=== PATIENT | male | born 1995 | race American Indian/Alaskan Native ===

== ENCOUNTER 2019-11-01 10:32 | Inpatient (IN) | payer SELFPAY ==
[2019-11-01] MEDS ORDERED: ACETAMINOPHEN 325 MG TAB PO ONE (10:41)
[2019-11-01] MEDS ORDERED: ACETAMINOPHEN 325 MG TAB ONE (10:44)
[2019-11-01] MEDS ORDERED: SODIUM CHLORIDE 0.9% 1000 ML 1,000 ML IV ONE ×2 (11:10→15:23)
--- NOTE | 2019-11-01 11:41 | XRay Report ---
CHEST 1 VIEW 11/01/2019 11:15 AM INDICATION / CLINICAL INFORMATION: cough. COMPARISON: None available. FINDINGS: SUPPORT DEVICES: None. HEART / MEDIASTINUM: No significant abnormality. LUNGS / PLEURA: No significant pulmonary or pleural abnormality. No pneumothorax. ADDITIONAL FINDINGS: No significant additional findings. IMPRESSION: 1. No acute abnormality of the chest. Signer Name: Mitchell Oh MD Signed: 11/01/2019 11:37 AM Workstation Name: [id number]
[2019-11-01 12:13] LABS: Basophils % (Auto) 0.2 % (0.0-1.8); Eosinophils % (Auto) 0.1 % (0.0-4.3); Hematocrit 40.4 % (35.5-45.6); Hemoglobin 13.8 gm/dl (11.8-15.2); Lymphocytes # (Auto) 0.9 K/mm3 (1.2-5.4); Lymphocytes % (Auto) 6.2 % (13.4-35.0); Mean Corpuscular HGB Conc 34 % (32-34); Mean Corpuscular Volume 91 fl (84-94); Monocytes # (Auto) 0.6 K/mm3 (0.0-0.8); Monocytes % (Auto) 4.5 % (0.0-7.3); Platelet Count 442 K/mm3 (140-440); Red Blood Count 4.42 M/mm3 (3.65-5.03); Red Cell Distribution Width 12.2 % (13.2-15.2)
--- NOTE | 2019-11-01 12:20 | Emergency Department Report ---
ED Chest Pain HPI - General Chief Complaint: Abdominal Pain Stated Complaint: SOB,BACK PAIN Time Seen by Provider: 11/01/19 11:05 Source: patient Mode of arrival: Ambulatory Limitations: No Limitations - History of Present Illness Initial Comments: This is a 24-year-old man who states that he went to see his primary care provider about 2 weeks ago for a routine exam and blood work. He was called later to inform him that he had elevated liver function test. He states that over the past few days he has developed a fever and chills at night. He has had a nonproductive cough. He states that he has some substernal chest discomfort when he takes a deep breath. He has had no leg pain, no recent travel, no exposure to TB or patients known to have COVID. He does not take any routine medications. He states that he was admitted once for pneumonia as a child. MD Complaint: chest pain -: Gradual, days(s) Onset: during rest Pain Location: substernal Pain Radiation: none Severity: moderate Severity scale (0 -10): 0 Quality: aching Consistency: intermittent Improves With: nothing Worsens With: inspiration Context: recent illness re: denies: nausea, vomting, diaphoresis Other Symptoms: cough. denies: fever, syncope Aspirin use within the Past 7 Days: (0) No - Related Data Allergies Allergy/AdvReac Type Severity Reaction Status Date / Time No Known Allergies Allergy Unverified 11/01/19 10:35 Heart Score - HEART Score History: Slightly suspicious EKG: Normal Age: < 45 Risk factors: No known risk factors Troponin: < normal limit HEART Score: 0 - Critical Actions Critical Actions: 0-3 pts:0.9-1.7%risk of adverse cardiac event.Candidate for discharge ED Review of Systems ROS: Stated complaint: SOB,BACK PAIN Other details as noted in HPI Constitutional: denies: chills, fever Eyes: denies: eye pain, eye discharge, vision change ENT: denies: ear pain, throat pain Respiratory: cough. denies: shortness of breath, wheezing Cardiovascular: chest pain. denies: palpitations Endocrine: no symptoms reported Gastrointestinal: denies: abdominal pain, nausea, diarrhea Genitourinary: denies: urgency, dysuria Musculoskeletal: denies: back pain, joint swelling, arthralgia Skin: denies: rash, lesions Neurological: denies: headache, weakness, paresthesias Psychiatric: denies: anxiety, depression Hematological/Lymphatic: denies: easy bleeding, easy bruising ED Past Medical Hx - Past Medical History Previous Medical History?: Yes Hx Asthma: Yes Additional medical history: Childhood pneumonia - Surgical History Past Surgical History?: No - Social History Smoking Status: Never Smoker Substance Use Type: Alcohol ED Physical Exam - General Limitations: No Limitations General appearance: alert, in no apparent distress - Head Head exam: Present: atraumatic, normocephalic - Eye Eye exam: Present: normal appearance, PERRL, EOMI. Absent: scleral icterus - ENT ENT exam: Present: mucous membranes moist - Neck Neck exam: Present: normal inspection. Absent: tenderness, meningismus - Respiratory Respiratory exam: Present: normal lung sounds bilaterally. Absent: respiratory distress - Cardiovascular Cardiovascular Exam: Present: regular rate, normal rhythm. Absent: systolic mu rmur, diastolic murmur, rubs, gallop - GI/Abdominal GI/Abdominal exam: Present: soft, normal bowel sounds. Absent: distended, tenderness, guarding, rebound, rigid - Rectal Rectal exam: Present: deferred - Extremities Exam Extremities exam: Present: normal inspection - Back Exam Back exam: Present: normal inspection - Neurological Exam Neurological exam: Present: alert, oriented X3, CN II-XII intact. Absent: motor sensory deficit - Psychiatric Psychiatric exam: Present: normal affect, normal mood - Skin Skin exam: Present: warm, dry, intact, normal color. Absent: rash ED Course Vital Signs 11/01/19 11/01/19 11/01/19 10:38 11:19 11:30 Temperature 101.5 F H Pulse Rate 124 H 112 H 112 H Respiratory 22 12 21 Rate Blood Pressure 138/78 115/74 O2 Sat by Pulse 96 96 Oximetry 11/01/19 11/01/19 11/01/19 12:00 12:27 13:00 Temperature 100.0 F H Pulse Rate 100 H 103 H Respiratory 17 36 H Rate Blood Pressure 119/66 126/71 O2 Sat by Pulse 97 97 Oximetry 11/01/19 14:00 Temperature Pulse Rate 116 H Respiratory 29 H Rate Blood Pressure 130/74 O2 Sat by Pulse 98 Oximetry - Reevaluation(s) Reevaluation #1: Discussed with hospitalist. Patient admitted. I suspect the patient will be COVID positive. 11/01/19 15:21 CHATO score - Chato Score Age > 65: (0) No Aspirin use within the Past 7 Days: (0) No 3 or more CAD Risk Factors: (0) No 2 or more Angina events in past 24 hrs: (0) No Known CAD with more than 50% Stenosis: (0) No Elevated Cardiac Markers: (0) No ST Deviation Greater than 0.5mm: (0) No CHATO Score: 0 ED Medical Decision Making - Lab Data Result diagrams: 11/01/19 11:55 11/01/19 11:55 Laboratory Results - last 24 hr 11/01/19 11/01/19 11/01/19 11:55 11:55 11:55 WBC 14.3 H RBC 4.42 Hgb 13.8 Hct 40.4 MCV 91 MCH 31 MCHC 34 RDW 12.2 L Plt Count 442 H Lymph % (Auto) 6.2 L Ocean % (Auto) 4.5 Eos % (Auto) 0.1 Baso % (Auto) 0.2 Lymph # 0.9 L [place] # 0.6 Eos # 0.0 Baso # 0.0 Seg Neutrophils % 89.0 H Seg Neutrophils # 12.7 H PT 13.8 INR 1.05 APTT 31.1 D-Dimer 236.11 H Sodium Potassium Chloride Carbon Dioxide Anion Gap BUN Creatinine Estimated GFR BUN/Creatinine Ratio Glucose Calcium Magnesium Total Bilirubin Direct Bilirubin Indirect Bilirubin AST ALT Alkaline Phosphatase Lactate Dehydrogenase Total Creatine Kinase Troponin T C-Reactive Protein Total Protein Albumin Albumin/Globulin Ratio Lipase 11 L 11/01/19 11/01/19 11:55 11:55 WBC RBC Hgb Hct MCV MCH MCHC RDW Plt Count Lymph % (Auto) Ocean % (Auto) Eos % (Auto) Baso % (Auto) Lymph # Ocean # Eos # Baso # Seg Neutrophils % Seg Neutrophils # PT INR APTT D-Dimer Sodium 139 Potassium 3.6 Chloride 96.2 L Carbon Dioxide 25 Anion Gap 21 BUN 12 Creatinine 0.8 Estimated GFR > 60 BUN/Creatinine Ratio 15 Glucose 96 93 Calcium 9.9 Magnesium 2.50 H Total Bilirubin 0.70 Direct Bilirubin 0.2 Indirect Bilirubin 0.5 AST 28 ALT 57 H Alkaline Phosphatase 82 Lactate Dehydrogenase 294 H 286 H Total Creatine Kinase 82 Troponin T < 0.010 C-Reactive Protein 30.30 H 31.60 H Total Protein 8.8 H Albumin 4.6 Albumin/Globulin Ratio 1.1 Lipase Laboratory Results - last 24 hr 11/01/19 11/01/19 11/01/19 11:55 11:55 11:55 WBC 14.3 H RBC 4.42 Hgb 13.8 Hct 40.4 MCV 91 MCH 31 MCHC 34 RDW 12.2 L Plt Count 442 H Lymph % (Auto) 6.2 L [place] % (Auto) 4.5 Eos % (Auto) 0.1 Baso % (Auto) 0.2 Lymph # 0.9 L [place] # 0.6 Eos # 0.0 Baso # 0.0 Seg Neutrophils % 89.0 H Seg Neutrophils # 12.7 H PT 13.8 INR 1.05 APTT 31.1 D-Dimer 236.11 H Sodium Potassium Chloride Carbon Dioxide Anion Gap BUN Creatinine Estimated GFR BUN/Creatinine Ratio Glucose Lactic Acid Calcium Magnesium Ferritin Total Bilirubin Direct Bilirubin Indirect Bilirubin AST ALT Alkaline Phosphatase Lactate Dehydrogenase Total Creatine Kinase CK-MB (CK-2) CK-MB (CK-2) Rel Index Troponin T C-Reactive Protein Total Protein Albumin Albumin/Globulin Ratio Lipase 11 L Procalcitonin 11/01/19 11/01/19 11/01/19 11:55 11:55 11:55 WBC RBC Hgb Hct MCV MCH MCHC RDW Plt Count Lymph % (Auto) Ocean % (Auto) Eos % (Auto) Baso % (Auto) Lymph # Ocean # Eos # Baso # Seg Neutrophils % Seg Neutrophils # PT INR APTT D-Dimer Sodium 139 Potassium 3.6 Chloride 96.2 L Carbon Dioxide 25 Anion Gap 21 BUN 12 Creatinine 0.8 Estimated GFR > 60 BUN/Creatinine Ratio 15 Glucose 96 Lactic Acid Calcium 9.9 Magnesium 2.50 H Ferritin 615.2 H Total Bilirubin 0.70 Direct Bilirubin 0.2 Indirect Bilirubin 0.5 AST 28 ALT 57 H Alkaline Phosphatase 82 Lactate Dehydrogenase 294 H Total Creatine Kinase 82 CK-MB (CK-2) < 1.0 CK-MB (CK-2) Rel Index 1.2 Troponin T < 0.010 C-Reactive Protein 30.30 H Total Protein 8.8 H Albumin 4.6 Albumin/Globulin Ratio 1.1 Lipase Procalcitonin 0.11 11/01/19 11/01/19 11:55 11:55 WBC RBC Hgb Hct MCV MCH MCHC RDW Plt Count Lymph % (Auto) Ocean % (Auto) Eos % (Auto) Baso % (Auto) Lymph # Ocean # Eos # Baso # Seg Neutrophils % Seg Neutrophils # PT INR APTT D-Dimer Sodium Potassium Chloride Carbon Dioxide Anion Gap BUN Creatinine Estimated GFR BUN/Creatinine Ratio Glucose 93 Lactic Acid 1.30 Calcium Magnesium Ferritin Total Bilirubin Direct Bilirubin Indirect Bilirubin AST ALT Alkaline Phosphatase Lactate Dehydrogenase 286 H Total Creatine Kinase CK-MB (CK-2) CK-MB (CK-2) Rel Index Troponin T C-Reactive Protein 31.60 H Total Protein Albumin Albumin/Globulin Ratio Lipase Procalcitonin - EKG Data -: EKG Interpreted by Me EKG shows normal: sinus rhythm, axis, intervals, QRS complexes, ST-T waves Rate: normal - EKG Data Interpretation: no acute changes - Radiology Data Radiology results: report reviewed (I think the patient may have a right perihilar/right lower lobe infiltrate. It was not read as positive by the radiologist.), image reviewed (CT appears to show bilateral infiltrates. I think COVID is likely in this patient.) Critical care attestation.: If time is entered above; I have spent that time in minutes in the direct care of this critically ill patient, excluding procedure time. ED Disposition Clinical Impression: Person under investigation for COVID-19 Bilateral pneumonia Qualifiers: Pneumonia type: due to unspecified organism Lung location: unspecified part of lung Qualified Code(s): J18.9 - Pneumonia, unspecified organism Disposition: OP ADMIT IP TO THIS HOSP Is pt being admited?: Yes Does the pt Need Aspirin: No Condition: Stable Instructions: Bacterial Pneumonia (ED) Referrals: PRIMARY CARE, [Primary Care Provider] - 3-5 Days Time of Disposition: 15:22
[2019-11-01 12:27] LABS: INR 1.05 (0.87-1.13); Partial Thromboplastin Time 31.1 Sec. (24.2-36.6)
[2019-11-01 12:36] LABS: C-Reactive Protein 31.6 mg/dL (0.00-1.30)
[2019-11-01 12:41] LABS: Alanine Aminotransferase 57 units/L (7-56); Albumin 4.6 g/dL (3.9-5); BUN/Creatinine Ratio 15; Bilirubin,Direct 0.2 mg/dL (0-0.2); Blood Urea Nitrogen 12 mg/dL (9-20); Calcium 9.9 mg/dL (8.4-10.2); Hemolysis Index 0
[2019-11-01 12:45] LABS: Creatine Kinase MB < 1.0 ng/mL (0.0-4.0)
[2019-11-01] MEDS ORDERED: AZITHROMYCIN 500 MG in SODIUM CHLORIDE 0.9% 250ML 250 ML IV ONE (13:00)
[2019-11-01] MEDS ORDERED: cefTRIAXone/NS 1 GM/50 ML 1 GM/50 ML BAG IV ONE (14:32)
--- NOTE | 2019-11-01 16:46 | Cat Scan Report ---
CT angio chest INDICATION / CLINICAL INFORMATION: Chest pain, questionable infiltrate, dimer. TECHNIQUE: Axial CT images were obtained after injection of Omnipaque 350, 100 cc IV contrast using CTA protocol . 3 plane MIP / 3D reconstructions were produced. All CT scans at this location are performed using C T dose reduction for ALARA by means of automated exposure control. COMPARISON: None available. FINDINGS: The lungs contain patchy groundglass opacity bilaterally. Negative for dense infiltrate or pleural fl uid. Mild atelectasis versus scarring is seen at the lingula laterally. No mediastinal mass or adenopathy. Imaging of the upper abdomen is unremarkable. Negative for aneurysm, dissection or pulmonary embolus. IMPRESSION: 1. Atypical infection is favored over asymmetric edema. 2. Negative for pulmonary embolus. Signer Name: Francisco Javier Silva MD Signed: 11/01/2019 4:41 PM Workstation Name: [id number]
[2019-11-01] MEDS ORDERED: ONDANSETRON 4 MG/2 ML INJ IV PRN (19:30)
--- NOTE | 2019-11-01 22:17 | History and Physical Report ---
History of Present Illness Date of examination: 11/01/19 Date of admission: 11/01/19 15:24 Chief complaint: Fever ,Cough for 4 days History of present illness: 24-year-old man who states that he went to see his primary care provider about 2 weeks ago for a routine exam and blood work. He was called later to inform him that he had elevated liver function tests. He states that over the past few days he has developed a fever and chills at night. He has had a nonproductive cough. He states that he has some substernal chest discomfort when he takes a deep breath. He has had no leg pain, no recent travel, no exposure to TB or patients known to have COVID. He does not take any routine medications. He states that he was admitted once for pneumonia as a child. Past Medical History Previous Medical History?: Yes Hx Asthma: Yes Additional medical history: Childhood pneumonia Surgical History Past Surgical History?: No Social History Smoking Status: Never Smoker no Substance Use Type: Alcohol FH Htn Review of Systems ROS: Stated complaint: SOB,BACK PAIN Other details as noted in HPI Constitutional: denies: chills, fever Eyes: denies: eye pain, eye discharge, vision change ENT: denies: ear pain, throat pain Respiratory: cough. denies: shortness of breath, wheezing Cardiovascular: chest pain. denies: palpitations Endocrine: no symptoms reported Gastrointestinal: denies: abdominal pain, nausea, diarrhea Genitourinary: denies: urgency, dysuria Musculoskeletal: denies: back pain, joint swelling, arthralgia Skin: denies: rash, lesions Neurological: denies: headache, weakness, paresthesias Psychiatric: denies: anxiety, depression Hematological/Lymphatic: denies: easy bleeding, easy bruising Medications and Allergies Allergies Allergy/AdvReac Type Severity Reaction Status Date / Time No Known Allergies Allergy Unverified 11/01/19 10:35 Home Medications Medication Instructions Recorded Confirmed Last Taken Type Adderall Xr 30 mg Capsule 60 mg PO DAILY 11/02/19 11/02/19 Unknown History Active Meds: Active Medications Sodium Chloride (Nacl 0.9% 1000 Ml) 1,000 mls @ 125 mls/hr IV ONCE ONE Stop: 11/01/19 23:22 Last Admin: 11/01/19 16:34 Dose: 125 mls/hr Documented by: Ondansetron HCl (Zofran) 4 mg IV Q4H PRN PRN Reason: Nausea And Vomiting Last Admin: 11/01/19 20:10 Dose: 4 mg Documented by: Exam - Constitutional Vitals: Temp Pulse Resp BP Pulse Ox 100.0 F H 100 H 34 H 127/72 99 11/01/19 12:27 11/01/19 16:00 11/01/19 16:00 11/01/19 16:00 11/01/19 16:00 General appearance: Present: no acute distress, well-nourished - EENT Eyes: Present: PERRL ENT: hearing intact, clear oral mucosa - Neck Neck: Present: supple, normal ROM - Respiratory Respiratory effort: normal Respiratory: bilateral: CTA, rhonchi - Cardiovascular Heart rate: 88 Rhythm: irregularly irregular Heart Sounds: Present: S1 & S2. Absent: rub, click - Extremities Extremities: no ischemia, pulses intact, pulses symmetrical, No edema Peripheral Pulses: within normal limits - Abdominal General gastrointestinal: Present: soft, non-tender, non-distended, normal bowel sounds Male genitourinary: Present: normal - Integumentary Integumentary: Present: clear, warm, dry - Musculoskeletal Musculoskeletal: gait normal, strength equal bilaterally - Psychiatric Psychiatric: appropriate mood/affect, intact judgment & insight - Neurologic Neurologic: CNII-XII intact, moves all extremities - Allied Health Allied health notes reviewed: nursing, case management HEART Score - HEART Score EKG: Normal Age: < 45 Risk factors: No known risk factors Troponin: Troponin T < 0.010 ng/mL (0.00-0.029) 11/01/19 11:55 Troponin: < normal limit - Critical Actions Critical Actions: 0-3 pts:0.9-1.7%risk of adverse cardiac event.Candidate for discharge Results - Labs CBC & Chem 7: 11/02/19 05:22 11/02/19 05:22 Labs: Laboratory Last Values WBC 14.3 K/mm3 (4.5-11.0) H 11/01/19 11:55 RBC 4.42 M/mm3 (3.65-5.03) 11/01/19 11:55 Hgb 13.8 gm/dl (11.8-15.2) 11/01/19 11:55 Hct 40.4 % (35.5-45.6) 11/01/19 11:55 MCV 91 fl (84-94) 11/01/19 11:55 MCH 31 pg (28-32) 11/01/19 11:55 MCHC 34 % (32-34) 11/01/19 11:55 RDW 12.2 % (13.2-15.2) L 11/01/19 11:55 Plt Count 442 K/mm3 (140-440) H 11/01/19 11:55 Lymph % (Auto) 6.2 % (13.4-35.0) L 11/01/19 11:55 [place] % (Auto) 4.5 % (0.0-7.3) 11/01/19 11:55 Eos % (Auto) 0.1 % (0.0-4.3) 11/01/19 11:55 Baso % (Auto) 0.2 % (0.0-1.8) 11/01/19 11:55 Lymph # 0.9 K/mm3 (1.2-5.4) L 11/01/19 11:55 [place] # 0.6 K/mm3 (0.0-0.8) 11/01/19 11:55 Eos # 0.0 K/mm3 (0.0-0.4) 11/01/19 11:55 Baso # 0.0 K/mm3 (0.0-0.1) 11/01/19 11:55 Seg Neutrophils % 89.0 % (40.0-70.0) H 11/01/19 11:55 Seg Neutrophils # 12.7 K/mm3 (1.8-7.7) H 11/01/19 11:55 PT 13.8 Sec. (12.2-14.9) 11/01/19 11:55 INR 1.05 (0.87-1.13) 11/01/19 11:55 APTT 31.1 Sec. (24.2-36.6) 11/01/19 11:55 D-Dimer 236.11 ng/mlDDU (0-234) H 11/01/19 11:55 Sodium 139 mmol/L (137-145) 11/01/19 11:55 Potassium 3.6 mmol/L (3.6-5.0) 11/01/19 11:55 Chloride 96.2 mmol/L (98-107) L 11/01/19 11:55 Carbon Dioxide 25 mmol/L (22-30) 11/01/19 11:55 Anion Gap 21 mmol/L 11/01/19 11:55 BUN 12 mg/dL (9-20) 11/01/19 11:55 Creatinine 0.8 mg/dL (0.8-1.5) 11/01/19 11:55 Estimated GFR > 60 ml/min 11/01/19 11:55 BUN/Creatinine Ratio 15 % 11/01/19 11:55 Glucose 93 mg/dL (75-100) 11/01/19 11:55 Glucose 96 mg/dL (75-100) 11/01/19 11:55 Lactic Acid 1.30 mmol/L (0.7-2.0) 11/01/19 11:55 Calcium 9.9 mg/dL (8.4-10.2) 11/01/19 11:55 Magnesium 2.50 mg/dL (1.7-2.3) H 11/01/19 11:55 Ferritin 615.2 ng/mL (13.0-400.0) H 11/01/19 11:55 Total Bilirubin 0.70 mg/dL (0.1-1.2) 11/01/19 11:55 Direct Bilirubin 0.2 mg/dL (0-0.2) 11/01/19 11:55 Indirect Bilirubin 0.5 mg/dL 11/01/19 11:55 AST 28 units/L (5-40) 11/01/19 11:55 ALT 57 units/L (7-56) H 11/01/19 11:55 Alkaline Phosphatase 82 units/L (35-129) 11/01/19 11:55 Lactate Dehydrogenase 286 units/L (91-180) H 11/01/19 11:55 Lactate Dehydrogenase 294 units/L (91-180) H 11/01/19 11:55 Total Creatine Kinase 82 units/L (55-170) 11/01/19 11:55 CK-MB (CK-2) < 1.0 ng/mL (0.0-4.0) 11/01/19 11:55 CK-MB (CK-2) Rel Index 1.2 (0-4) 11/01/19 11:55 Troponin T < 0.010 ng/mL (0.00-0.029) 11/01/19 11:55 C-Reactive Protein 30.30 mg/dL (0.00-1.30) H 11/01/19 11:55 C-Reactive Protein 31.60 mg/dL (0.00-1.30) H 11/01/19 11:55 Total Protein 8.8 g/dL (6.3-8.2) H 11/01/19 11:55 Albumin 4.6 g/dL (3.9-5) 11/01/19 11:55 Albumin/Globulin Ratio 1.1 % 11/01/19 11:55 Lipase 11 units/L (13-60) L 11/01/19 11:55 Procalcitonin 0.11 ng/mL (<0.15) 11/01/19 11:55 Short CBC 11/01/19 11/02/19 Range/Units 11:55 05:22 WBC 14.3 H 11.6 H (4.5-11.0) K/mm3 Hgb 13.8 13.6 (11.8-15.2) gm/dl Hct 40.4 39.9 (35.5-45.6) % Plt Count 442 H 402 (140-440) K/mm3 BMP 11/01/19 11/01/19 11/01/19 11:55 11:55 22:59 Sodium 139 Potassium 3.6 Chloride 96.2 L Carbon Dioxide 25 BUN 12 Creatinine 0.8 Glucose 96 93 88 Calcium 9.9 11/02/19 05:22 Sodium 137 Potassium 4.2 Chloride 97.1 L Carbon Dioxide 22 BUN 10 Creatinine 0.7 L Glucose 91 Calcium 9.3 Cardiac Enzymes 11/01/19 Range/Units 11:55 Total Creatine Kinase 82 (55-170) units/L CK-MB (CK-2) < 1.0 (0.0-4.0) ng/mL Troponin T < 0.010 (0.00-0.029) ng/mL Liver Function 11/01/19 11/02/19 Range/Units 11:55 05:22 Total Bilirubin 0.70 0.60 (0.1-1.2) mg/dL Direct Bilirubin 0.2 (0-0.2) mg/dL AST 28 24 (5-40) units/L ALT 57 H 42 (7-56) units/L Alkaline Phosphatase 82 67 (35-129) units/L Albumin 4.6 3.6 L (3.9-5) g/dL Urine 11/02/19 Range/Units Unknown Urine Color Yellow (Yellow) Urine pH 6.0 (5.0-7.0) Ur Specific [place] 1.031 H (1.003-1.030) Urine Protein 30 mg/dl (Negative) mg/dL Urine Glucose (UA) Neg (Negative) mg/dL Microbiology: Microbiology 11/01/19 11:55 Peripheral/Venous Blood Culture - Preliminary Culture in Progress 11/01/19 11:55 Peripheral/Venous Blood Culture - Preliminary Culture in Progress - Imaging and Cardiology EKG: report reviewed Chest x-ray: report reviewed (Timi interstitial markings even though radiology read as normal) Imaging and Cardiology: CT Chest FINDINGS: The lungs contain patchy groundglass opacity bilaterally. Negative for dense infiltrate or pleural fluid. Mild atelectasis versus scarring is seen at the lingula laterally. No mediastinal mass or adenopathy. Imaging of the upper abdomen is unremarkable. Negative for aneurysm, dissection or pulmonary embolus. IMPRESSION: 1. Atypical infection is favored over asymmetric edema. 2. Negative for pulmonary embolus. Jiménez/IV: IV Catheter Type [Right INT / Saline Lock Forearm] IV Catheter Type [Left Forearm INT / Saline Lock ] Assessment and Plan Advance Directives: Yes (Full code) VTE prophylaxis?: Chemical Plan of care discussed with patient/family: Yes - Patient Problems (1) SIRS (systemic inflammatory response syndrome) Current Visit: Yes Status: Acute Plan to address problem: Sirs b/c of fever tachycardia ,Leukocytosis (2) Bilateral pneumonia Current Visit: Yes Status: Acute Qualifiers: Pneumonia type: due to unspecified organism Lung location: unspecified part of lung Qualified Code(s): J18.9 - Pneumonia, unspecified organism Plan to address problem: Treat as CAP R/o Covid IV Rocephin and iV Zithromax ID consult for further reccomendations (3) Person under investigation for COVID-19 Current Visit: Yes Status: Acute Plan to address problem: Covid r/o work up --given bilateral pneumonia (4) DVT prophylaxis Current Visit: Yes Status: Acute Plan to address problem: On Lovenox and GI prophyla
[2019-11-01] MEDS ORDERED: oxyCODONE /ACETAMINOPHEN 5-325MG TAB PO PRN (22:20)
[2019-11-01] MEDS ORDERED: HYDROmorphone 1 MG/1 ML INJ IV PRN (22:20)
[2019-11-01] MEDS ORDERED: METOCLOPRAMIDE 10 MG/2 ML INJ IV PRN (22:20)
[2019-11-01] MEDS ORDERED: ALBUTEROL 8.5 GM INHALATION IH PRN (22:34)
[2019-11-01] MEDS: ACETAMINOPHEN 325 MG TAB PO PRN (23:03)
[2019-11-01] MEDS: FAMOTIDINE 20 MG TAB PO SCH (23:04)
[2019-11-02 04:58] LABS: C-Reactive Protein 28.5 mg/dL (0.00-1.30)
[2019-11-02] MEDS: ONDANSETRON 4 MG/2 ML INJ IV PRN ×2 (06:00→13:02)
[2019-11-02 06:08] LABS: Alanine Aminotransferase 42 units/L (7-56); Albumin 3.6 g/dL (3.9-5); BUN/Creatinine Ratio 14; Blood Urea Nitrogen 10 mg/dL (9-20); Calcium 9.3 mg/dL (8.4-10.2); Hemolysis Index 5
[2019-11-02 06:23] LABS: Basophils % (Auto) 0.3 % (0.0-1.8); Eosinophils % (Auto) 0.4 % (0.0-4.3); Hematocrit 39.9 % (35.5-45.6); Hemoglobin 13.6 gm/dl (11.8-15.2); Lymphocytes % (Auto) 8.9 % (13.4-35.0); Mean Corpuscular HGB Conc 34 % (32-34); Mean Corpuscular Volume 94 fl (84-94); Monocytes # (Auto) 0.6 K/mm3 (0.0-0.8); Platelet Count 402 K/mm3 (140-440); Red Blood Count 4.25 M/mm3 (3.65-5.03)
[2019-11-02 06:26] LABS: Bilirubin,Urine NEG (Negative); Blood,Urine NEG (Negative); Color,Urine Yellow (Yellow); Mucus,Urine FEW /HPF
[2019-11-02 07:19] LABS: Bacteria,Urine 1+ /HPF (Negative)
[2019-11-02] MEDS ORDERED: AZITHROMYCIN 500 MG in SODIUM CHLORIDE 0.9% 250ML 250 ML IV SCH (10:00)
[2019-11-02] MEDS: FAMOTIDINE 20 MG TAB PO SCH ×2 (10:41→21:02)
[2019-11-02] MEDS: cefTRIAXone/NS 2 GM/100 ML 2 GM/100 ML BAG IV SCH (10:41)
[2019-11-02] MEDS: SODIUM CHLORIDE 0.9% 1000 ML 1,000 ML IV SCH (16:17)
[2019-11-02] MEDS: ACETAMINOPHEN 325 MG TAB PO PRN (16:21)
[2019-11-02] MEDS: ALBUTEROL 2.5 MG/3 ML NEBU IH PRN (16:22)
--- NOTE | 2019-11-02 20:55 | Progress Note ---
Assessment and Plan - Patient Problems (1) SIRS (systemic inflammatory response syndrome) Current Visit: Yes Status: Acute Plan to address problem: Sirs b/c of fever tachycardia ,Leukocytosis (2) Bilateral pneumonia Current Visit: Yes Status: Acute Qualifiers: Pneumonia type: due to unspecified organism Lung location: unspecified part of lung Qualified Code(s): J18.9 - Pneumonia, unspecified organism Plan to address problem: Treat as CAP IV Rocephin and iV Zithromax ID consult for further reccomendations Coronavirus ruled out. Coronavirus PCR negative. (3) Person under investigation for COVID-19 Current Visit: Yes Status: Acute Plan to address problem: Coronavirus PCR negative. (4) DVT prophylaxis Current Visit: Yes Status: Acute Plan to address problem: On Lovenox and GI prophyla Subjective Date of service: 11/02/19 Principal diagnosis: Bilateral pneumonia Interval history: 24-year-old man who states that he went to see his primary care provider about 2 weeks ago for a routine exam and blood work. He was called later to inform him that he had elevated liver function tests. He states that over the past few days he has developed a fever and chills at night. He has had a nonproductive cough. He states that he has some substernal chest discomfort when he takes a deep breath. He has had no leg pain, no recent travel, no exposure to TB or patients known to have COVID. He does not take any routine medications. He states that he was admitted once for pneumonia as a child. Patient ruled out for coronavirus. Symptomatically better. Afebrile since last night Objective - Constitutional Vitals: Vital Signs - 12hr 11/02/19 11/02/19 11/02/19 11:26 16:28 17:05 Temperature 98.4 F 98.9 F Pulse Rate 105 H 116 H Pulse Rate [ 116 H Bilateral] Respiratory 19 20 Rate Respiratory 18 Rate [Bilateral ] Blood Pressure 114/68 111/63 O2 Sat by Pulse 94 99 Oximetry General appearance: Present: mild distress, well-nourished - EENT Eyes: PERRL, EOM intact ENT: hearing intact, clear oral mucosa Ears: bilateral: normal - Neck Neck: supple, normal ROM - Respiratory Respiratory effort: normal Respiratory: bilateral: CTA - Breasts Breasts: normal - Cardiovascular Heart rate: 105 Rhythm: regular Heart Sounds: Present: S1 & S2. Absent: gallop, rub Extremities: no ischemia, pulses intact, No edema, normal color, Full ROM - Gastrointestinal General gastrointestinal: Present: deferred, soft, non-tender, non-distended, normal bowel sounds - Genitourinary Male genitourinary: normal - Integumentary Integumentary: clear, warm, dry - Musculoskeletal Musculoskeletal: 1, strength equal bilaterally - Neurologic Neurologic: moves all extremities - Psychiatric Psychiatric: memory intact, appropriate mood/affect, intact judgment & insight - Allied health notes Allied health notes reviewed: nursing, case management - Labs CBC & Chem 7: 11/02/19 05:22 11/02/19 05:22 Labs: Abnormal lab results 11/01/19 11/01/19 11/01/19 Range/Units 22:59 22:59 22:59 WBC (4.5-11.0) K/mm3 RDW (13.2-15.2) % Lymph % (Auto) (13.4-35.0) % Lymph # (1.2-5.4) K/mm3 Seg Neutrophils % (40.0-70.0) % Seg Neutrophils # (1.8-7.7) K/mm3 D-Dimer 252.54 H (0-234) ng/mlDDU Chloride (98-107) mmol/L Creatinine (0.8-1.5) mg/dL Ferritin 614.5 H (13.0-400.0) ng/mL Lactate Dehydrogenase 305 H (91-180) units/L C-Reactive Protein 28.50 H (0.00-1.30) mg/dL Albumin (3.9-5) g/dL Ur Specific [place] (1.003-1.030) 11/02/19 11/02/19 11/02/19 Range/Units 05:22 05:22 Unknown WBC 11.6 H (4.5-11.0) K/mm3 RDW 12.0 L (13.2-15.2) % Lymph % (Auto) 8.9 L (13.4-35.0) % Lymph # 1.0 L (1.2-5.4) K/mm3 Seg Neutrophils % 85.4 H (40.0-70.0) % Seg Neutrophils # 9.9 H (1.8-7.7) K/mm3 D-Dimer (0-234) ng/mlDDU Chloride 97.1 L (98-107) mmol/L Creatinine 0.7 L (0.8-1.5) mg/dL Ferritin (13.0-400.0) ng/mL Lactate Dehydrogenase (91-180) units/L C-Reactive Protein (0.00-1.30) mg/dL Albumin 3.6 L (3.9-5) g/dL Ur Specific [place] 1.031 H (1.003-1.030) HEART Score - HEART Score EKG: Normal Age: < 45 Risk factors: No known risk factors Troponin: Troponin T < 0.010 ng/mL (0.00-0.029) 11/01/19 11:55 Troponin: < normal limit - Critical Actions Critical Actions: 0-3 pts:0.9-1.7%risk of adverse cardiac event.Candidate for discharge
[2019-11-02] MEDS: ENOXAPARIN 40 MG/0.4 ML INJ SUB-Q SCH (21:04)
[2019-11-02] MEDS: ALBUTEROL 2.5 MG/3 ML NEBU IH SCH (22:59)
[2019-11-03] MEDS: ALBUTEROL 2.5 MG/3 ML NEBU IH SCH ×3 (07:59→21:10)
[2019-11-03] MEDS: FAMOTIDINE 20 MG TAB PO SCH ×2 (09:10→21:16)
[2019-11-03] MEDS: cefTRIAXone/NS 2 GM/100 ML 2 GM/100 ML BAG IV SCH (09:11)
[2019-11-03] MEDS ORDERED: AZITHROMYCIN 250 MG TAB PO SCH (10:00)
--- NOTE | 2019-11-03 13:49 | Consultation ---
History of Present Illness - Reason for Consult Consult date: 11/03/19 kecia pneumonia Requesting physician: LUIS ENRIQUE INIGUEZ - History of Present Illness 20 years old male with history of heavy alcohol abuse, marijuana abuse, ADHD on adderall ?; admitted on 11/01/2019 due to 2 week history of generalized malaise, weakness, nausea, multiple vomiting, anorexia, epigastric abdominal pain, 10 pound weight loss. Patient drinks beers or liquor 6 cups a day and frequently becomes intoxicated. He reports his primary care physician did blood work and found elevated LFTs since then he stopped drinking alcohol 2 weeks ago. Patient is with 2 kids. Denies homosexual sex. Reports marijuana use and denies tobacco use. He works in warehouse. On arrival, temperature 101.5, HR 124, RR 22, O2 sat 96, BP 138/78. Initial WBC 14. Hemoglobin 13.8. Platelets 442. D-dimer 236. LDH 294. ALT 57. CRP 30. Procalcitonin 0.11. Urinalysis negative. COVID test negative. Blood culture 11/01/2019 no growth. CTA showed bilateral patchy groundglass opacities. Review of Systems: positive in bold print General: + fever, +chills, +malaise, +weight loss Cutaneous: rash, pruritus Head: headaches or injury Eyes: changes in vision, eye pain, double vision Ears: ear pain, ear discharge, ringing or hearing loss Nose: nose bleeding, stuffiness Mouth & throat: bleeding gums, horseness, no dental problems, or swollen glands Neck: no pain, node enlargement/lumps, tyroid enlargement or tenderness Respiratory: SOB, +cough, HEALY, wheezing, sputum, hemoptysis, pleuritic chest pain Cardiovascular: chest pain, leg edema, cyanosis, HEALY, orthopnea Musculoskeletal: edema Gastrointestinal: nausea, vomiting, hematemesis, diarrhea, constipation, melena, bright red blood in stools, fecal incontinence, jaundice Genitourinary/Reproductive: frequent urination, dysuria, hematuria, incontinence Neurogical: seizures, headaches, weakness, paresthesias, loss of speech or vision; memory loss, vertigo, tremors, numbness Psychiatric: stable mood; excessive anxiety, sadness or moodiness Medications and Allergies Allergies Allergy/AdvReac Type Severity Reaction Status Date / Time No Known Allergies Allergy Unverified 11/01/19 10:35 Home Medications Medication Instructions Recorded Confirmed Last Taken Type Adderall Xr 30 mg Capsule 60 mg PO DAILY 11/02/19 11/02/19 Unknown History Active Meds: Active Medications Acetaminophen (Tylenol) 650 mg PO Q4H PRN PRN Reason: Pain MILD(1-3)/Fever >100.5/PERRIN Last Admin: 11/02/19 16:21 Dose: 650 mg Documented by: Albuterol (Proair) 2 puff IH Q4HRT PRN PRN Reason: Shortness Of Breath Albuterol (Proventil) 2.5 mg IH Q3HRT PRN PRN Reason: Shortness Of Breath Last Admin: 11/02/19 16:22 Dose: 2.5 mg Documented by: Albuterol (Proventil) 2.5 mg IH TIDRT [facility] Last Admin: 11/03/19 07:59 Dose: 2.5 mg Documented by: Azithromycin (Zithromax) 500 mg PO QDAY [facility] Stop: 11/05/19 10:01 Last Admin: 11/03/19 09:10 Dose: 500 mg Documented by: Enoxaparin Sodium (Enoxaparin) 40 mg SUB-Q QDAY@2200 [facility] Last Admin: 11/02/19 21:04 Dose: 40 mg Documented by: Famotidine (Pepcid) 20 mg PO BID [facility] Last Admin: 11/03/19 09:10 Dose: 20 mg Documented by: Hydromorphone HCl (Dilaudid) 0.5 mg IV Q3H PRN PRN Reason: Pain , Severe (7-10) Sodium Chloride (Nacl 0.9% 1000 Ml) 1,000 mls @ 42 mls/hr IV DIRECT [facility] Last Admin: 11/02/19 16:17 Dose: 42 mls/hr Documented by: Ceftriaxone Sodium (Rocephin/Ns 2 Gm/100 Ml) 2 gm in 100 mls @ 200 mls/hr IV Q24HR [facility]; Protocol Last Admin: 11/03/19 09:11 Dose: 200 mls/hr Documented by: Metoclopramide HCl (Reglan) 10 mg IV Q6H PRN PRN Reason: Nausea And Vomiting Ondansetron HCl (Zofran) 4 mg IV Q3H PRN PRN Reason: Nausea And Vomiting Last Admin: 11/02/19 13:02 Dose: 4 mg Documented by: Oxycodone/Acetaminophen (Percocet 5/325) 1 tab PO Q6H PRN PRN Reason: Pain, Moderate (4-6) Sodium Chloride (Sodium Chloride Flush Syringe 10 Ml) 10 ml IV BID [facility] Last Admin: 11/03/19 09:12 Dose: 10 ml Documented by: Sodium Chloride (Sodium Chloride Flush Syringe 10 Ml) 10 ml IV PRN PRN PRN Reason: LINE FLUSH Physical Examination - Physical Exam Narrative exam: General appearance: Alert in NAD Eyes: anicteric sclerae, moist conjunctivae; no lid-lag; PERRLA HENT: Atraumatic; oropharynx clear Lungs: kecia scattered rhonchi CV: RRR no murmur Abdomen: Soft, non-tender; no masses or hepatosplenomegaly Extremities: no edema, no cyanosis Skin: No rash. Psych: Appropriate affect, alert and oriented to person, place and time. Neuro: alert and oriented x 3. Moving all extermities - Constitutional Vitals: Vital Signs Temp Pulse Resp BP Pulse Ox 100.2 F H 103 H 20 114/68 97 11/03/19 11:34 11/03/19 11:34 11/03/19 11:34 11/03/19 11:34 11/03/19 11:34 Temperature -Last 24 Hours Temperature 100.2 F Temperature 99.8 F Temperature 98.8 F Temperature 98.9 F Results - Labs CBC & Chem 7: 11/02/19 05:22 11/02/19 05:22 Assessment and Plan Cultures: Blood culture 11/01/2019 no growth. Assessment: 20 years old male with history of heavy alcohol abuse, marijuana abuse, ADD on adderal ?; admitted on 11/01/2019 due to 2 week history of generalized malaise, weakness, nausea, multiple vomiting, anorexia, epigastric abdominal pain, 10 pound weight loss: #Sepsis: present on admission with fever, tachycardia; source bilateral pneumonia. Blood culture 11/01/2019 no growth. UA negative. #Bilateral pneumonia: Of unclear etiology, ?bacterial due to elevated procal; possibilities aspiration pneumonitis patient recently drinking alcohol heavily with recurrent nausea vomiting, community-acquired pneumonia, less likely P MONICA pneumonia. COVID negative. Procalcitonin 0.11. CTA showed bilateral patchy groundglass opacities. #Weight loss: Likely due to heavy alcohol consumption #Elevated LFTs: Probably due to alcohol Recommendations: Obtain urine drug screen Obtain HIV test Stop ceftriaxone and azithromycin Start Unasyn IV to cover aspiration pneumonitis Start Bactrim DS 2 tabs p.o. 3 times daily until PGP is ruled out Obtain legionella and strep pneumoniae ag will follow Amanda Aldrich MD Infectious Diseases Receptionist [employer] [facility] ([facility] M [phone] O [phone]
[2019-11-03] MEDS: SULFAMETHOXAZOLE/TRIMETHOPRIM 800/160MG DS TAB PO SCH ×2 (14:58→21:15)
[2019-11-03] MEDS: SODIUM CHLORIDE 0.9% 1000 ML 1,000 ML IV SCH (14:59)
[2019-11-03] MEDS: AMPICILLIN/SULBACTA 3GM/100ML 3 GM/100 ML BAG IV SCH ×3 (16:36→23:41)
[2019-11-03 18:52] LABS: Amphetamine Screen,Urine PRESUMPTIVE NEGATIVE; Benzodiazepines Screen,Urine PRESUMPTIVE NEGATIVE; Cocaine Screen,Urine PRESUMPTIVE NEGATIVE; Methadone Screen,Urine PRESUMPTIVE NEGATIVE; Opiate Screen,Urine PRESUMPTIVE NEGATIVE
[2019-11-03 19:04] LABS: Cannabinoid Screen,Urine PRESUMPTIVE POSITIVE
[2019-11-03] MEDS: ENOXAPARIN 40 MG/0.4 ML INJ SUB-Q SCH (21:14)
--- NOTE | 2019-11-04 04:23 | Progress Note ---
Assessment and Plan - Patient Problems (1) SIRS (systemic inflammatory response syndrome) Current Visit: Yes Status: Acute Plan to address problem: Sirs b/c of fever tachycardia ,Leukocytosis (2) Bilateral pneumonia Current Visit: Yes Status: Acute Qualifiers: Pneumonia type: due to unspecified organism Lung location: unspecified part of lung Qualified Code(s): J18.9 - Pneumonia, unspecified organism Plan to address problem: Treat as CAP R/o Covid IV Rocephin and iV Zithromax ID consult for further reccomendations (3) Person under investigation for COVID-19 Current Visit: Yes Status: Acute Plan to address problem: Covid r/o work up --given bilateral pneumonia (4) DVT prophylaxis Current Visit: Yes Status: Acute Plan to address problem: On Lovenox and GI prophyla Subjective Date of service: 11/03/19 Principal diagnosis: Bilateral pneumonia Interval history: 24-year-old man who states that he went to see his primary care provider about 2 weeks ago for a routine exam and blood work. He was called later to inform him that he had elevated liver function tests. He states that over the past few days he has developed a fever and chills at night. He has had a nonproductive cough. He states that he has some substernal chest discomfort when he takes a deep breath. He has had no leg pain, no recent travel, no exposure to TB or patients known to have COVID. He does not take any routine medications. He states that he was admitted once for pneumonia as a child. Patient ruled out for coronavirus. Symptomatically better. Afebrile since last night Objective - Constitutional Vitals: Vital Signs - 12hr 11/03/19 11/03/19 11/03/19 16:27 21:10 21:36 Temperature 98.8 F 99.8 F H Pulse Rate 110 H 126 H Pulse Rate [ 114 H Bilateral] Respiratory 16 24 Rate Respiratory 20 Rate [Bilateral ] Blood Pressure 108/64 Blood Pressure 115/64 [Left] O2 Sat by Pulse 94 94 99 Oximetry - Labs CBC & Chem 7: 11/02/19 05:22 11/02/19 05:22 HEART Score - HEART Score EKG: Normal Age: < 45 Risk factors: No known risk factors Troponin: Troponin T < 0.010 ng/mL (0.00-0.029) 11/01/19 11:55 Troponin: < normal limit - Critical Actions Critical Actions: 0-3 pts:0.9-1.7%risk of adverse cardiac event.Candidate for discharge
[2019-11-04] MEDS: SULFAMETHOXAZOLE/TRIMETHOPRIM 800/160MG DS TAB PO SCH ×3 (05:15→21:34)
[2019-11-04] MEDS: ACETAMINOPHEN 325 MG TAB PO PRN ×2 (05:15→19:52)
[2019-11-04] MEDS: AMPICILLIN/SULBACTA 3GM/100ML 3 GM/100 ML BAG IV SCH ×3 (05:16→19:52)
[2019-11-04] MEDS: ALBUTEROL 2.5 MG/3 ML NEBU IH SCH ×3 (08:07→19:52)
[2019-11-04] MEDS: FAMOTIDINE 20 MG TAB PO SCH ×2 (09:50→21:34)
[2019-11-04] MEDS: ALBUTEROL 2.5 MG/3 ML NEBU IH PRN (11:34)
[2019-11-04] MEDS: SODIUM CHLORIDE 0.9% 1000 ML 1,000 ML IV SCH ×2 (11:45→19:57)
[2019-11-04] MEDS: ENOXAPARIN 40 MG/0.4 ML INJ SUB-Q SCH (21:32)
[2019-11-05] MEDS: AMPICILLIN/SULBACTA 3GM/100ML 3 GM/100 ML BAG IV SCH ×3 (00:51→13:57)
[2019-11-05] MEDS: SULFAMETHOXAZOLE/TRIMETHOPRIM 800/160MG DS TAB PO SCH ×2 (06:21→13:58)
--- NOTE | 2019-11-05 07:36 | Progress Note ---
Assessment and Plan - Patient Problems (1) SIRS (systemic inflammatory response syndrome) Current Visit: Yes Status: Acute Plan to address problem: Sirs b/c of fever tachycardia ,Leukocytosis (2) Bilateral pneumonia Current Visit: Yes Status: Acute Qualifiers: Pneumonia type: due to unspecified organism Lung location: unspecified part of lung Qualified Code(s): J18.9 - Pneumonia, unspecified organism Plan to address problem: Treat as CAP R/o Covid IV Rocephin and iV Zithromax Stopped ID consult appreciated Change to IV Unasyn and PO Bactrim R/o PCP pneumonia (3) Person under investigation for COVID-19 Current Visit: Yes Status: Acute Plan to address problem: Covid negative --given bilateral pneumonia (4) DVT prophylaxis Current Visit: Yes Status: Acute Plan to address problem: On Lovenox and GI prophyla Subjective Date of service: 11/04/19 Principal diagnosis: Bilateral pneumonia Interval history: 24-year-old man who states that he went to see his primary care provider about 2 weeks ago for a routine exam and blood work. He was called later to inform him that he had elevated liver function tests. He states that over the past few days he has developed a fever and chills at night. He has had a nonproductive cough. He states that he has some substernal chest discomfort when he takes a deep breath. He has had no leg pain, no recent travel, no exposure to TB or patients known to have COVID. He does not take any routine medications. He states that he was admitted once for pneumonia as a child. Patient ruled out for coronavirus. Symptomatically better. Afebrile since last night Doing better Objective - Constitutional Vitals: Vital Signs - 12hr 11/04/19 11/04/19 11/05/19 20:00 21:32 04:21 Temperature 99.6 F 100.9 F H Pulse Rate 106 H 95 H Pulse Rate [ 122 H Bilateral] Respiratory 20 20 Rate Respiratory 20 Rate [Bilateral ] Blood Pressure 117/65 115/67 O2 Sat by Pulse 95 96 94 Oximetry General appearance: Present: no acute distress, well-nourished - EENT Eyes: PERRL, EOM intact ENT: hearing intact, clear oral mucosa Ears: bilateral: normal - Neck Neck: supple, normal ROM - Respiratory Respiratory effort: normal Respiratory: bilateral: CTA, negative: rhonchi - Breasts Breasts: normal - Cardiovascular Rhythm: regular Heart Sounds: Present: S1 & S2. Absent: gallop, rub Extremities: pulses intact, No edema, normal color, Full ROM - Gastrointestinal General gastrointestinal: Present: soft, non-tender, non-distended, normal bowel sounds - Genitourinary Male genitourinary: normal - Integumentary Integumentary: clear, warm, dry - Musculoskeletal Musculoskeletal: 1, strength equal bilaterally - Neurologic Neurologic: moves all extremities - Psychiatric Psychiatric: memory intact, appropriate mood/affect, intact judgment & insight - Labs CBC & Chem 7: 11/02/19 05:22 11/02/19 05:22 HEART Score - HEART Score EKG: Normal Age: < 45 Risk factors: No known risk factors Troponin: Troponin T < 0.010 ng/mL (0.00-0.029) 11/01/19 11:55 Troponin: < normal limit - Critical Actions Critical Actions: 0-3 pts:0.9-1.7%risk of adverse cardiac event.Candidate for discharge
[2019-11-05] MEDS: ALBUTEROL 2.5 MG/3 ML NEBU IH SCH ×2 (10:07→15:52)
[2019-11-05] MEDS: FAMOTIDINE 20 MG TAB PO SCH (10:15)
--- NOTE | 2019-11-05 11:08 | Progress Note ---
Assessment and Plan Cultures: Blood culture 11/01/2019 no growth. Assessment: 20 years old male with history of heavy alcohol abuse, marijuana abuse, ADD on adderal ?; admitted on 11/01/2019 due to 2 week history of ge neralized malaise, weakness, nausea, multiple vomiting, anorexia, epigastric abdominal pain, 10 pound weight loss: #Sepsis: still low grade fever; source bilateral pneumonia. Blood culture 11/01/2019 no growth. UA negative. #Bilateral pneumonia: Of unclear etiology, ?bacterial due to elevated procal; possibilities aspiration pneumonitis patient recently drinking alcohol heavily with recurrent nausea vomiting, community-acquired pneumonia, less likely P MONICA pneumonia. COVID negative. Procalcitonin 0.11. CTA showed bilateral patchy groundglass opacities. UDS +marihuana #Weight loss: Likely due to heavy alcohol consumption #Elevated LFTs: Probably due to alcohol Recommendations: Obtain HIV test - pending Continue Unasyn IV to cover aspiration pneumonitis Continue Bactrim DS 2 tabs p.o. 3 times daily until PJP is ruled out F/u legionella and strep pneumoniae ag patient wants to go home, feels much better, if he agrees to monitor his fever and come to ID office in 1 week, ok to d/c on augmentin 875 mg po bid x 7 days. I will not add treatment for PJP unless HIV positive. D/w Dr Andre will follow Amanda Aldrich MD Infectious Diseases Power Re[employer] Operator [facility] ([facility]) M [phone] O [phone] Subjective Date of service: 11/05/19 Principal diagnosis: Bilateral pneumonia Interval history: Feels much better, no cough, no SOB, on room air. Still tmax 100.9 Objective - Exam Narrative Exam: General appearance: Alert in NAD Eyes: anicteric sclerae, moist conjunctivae; no lid-lag; PERRLA HENT: Atraumatic; oropharynx clear Lungs:CTA CV: RRR no murmur Abdomen: Soft, non-tender; no masses or hepatosplenomegaly Extremities: no edema, no cyanosis Skin: No rash. Psych: Appropriate affect, alert and oriented to person, place and time. Neuro: alert and oriented x 3. Moving all extermities - Constitutional Vitals: Vital Signs Temp Pulse Resp BP Pulse Ox 100.9 F H 82 18 115/67 94 11/05/19 04:21 11/05/19 10:10 11/05/19 10:10 11/05/19 04:21 11/05/19 04:21 Temperature -Last 24 Hours Temperature 100.9 F Temperature 99.6 F Temperature 100.1 F - Labs CBC & Chem 7: 11/02/19 05:22 11/02/19 05:22
[2019-11-05] MEDS: SODIUM CHLORIDE 0.9% 1000 ML 1,000 ML IV SCH (13:57)
--- NOTE | 2019-11-05 16:44 | Discharge Summary ---
Providers - Providers Date of Admission: 11/01/19 15:24 Date of discharge: 11/05/19 Attending physician: LUIS ENRIQUE INIGUEZ 11/01/19 22:20 Consult to Physician [CONS] Routine Comment: Consulting Provider: STEFANY SHEETS Physician Instructions: Reason For Exam: Bilateral pneumonia Primary care physician: ELECTORAL OFFICER Hospitalization Condition: Stable Pertinent studies: Covered negativex2 Hospital course: Day #5 24-year-old man who states that he went to see his primary care provider about 2 weeks ago for a routine exam and blood work. He was called later to inform him that he had elevated liver function tests. He states that over the past few days he has developed a fever and chills at night. He has had a nonproductive cough. He states that he has some substernal chest discomfort when he takes a deep breath. He has had no leg pain, no recent travel, no exposure to TB or patients known to have COVID. He does not take any routine medications. He states that he was admitted once for pneumonia as a child. Patient ruled out for coronavirus. Symptomatically better. Doing better #Sepsis: still low grade fever; source bilateral pneumonia. Blood culture 11/01/2019 no growth. UA negative. #Bilateral pneumonia: Of unclear etiology, ?bacterial due to elevated procal; possibilities aspiration pneumonitis patient recently drinking alcohol heavily with recurrent nausea vomiting, community-acquired pneumonia, less likely PCP pneumonia. COVID negative. Procalcitonin 0.11. CTA showed bilateral patchy groundglass opacities. UDS +marihuana #Weight loss: Likely due to heavy alcohol consumption #Elevated LFTs: Probably due to alcohol Recommendations: Obtain HIV test - pending patient wants to go home, feels much better, if he agrees to monitor his fever and goes to ID office in 1 week, o d/c on augmentin 875 mg po bid x 7 days. No treatment for PJP unless HIV positive. Follow-up with ID in 1 week Disposition: DC-01 TO HOME OR SELFCARE Time spent for discharge: 35 minutes Core Measure Documentation - Palliative Care Palliative Care/ Comfort Measures: Not Applicable - Core Measures Any of the following diagnoses?: none Exam - Constitutional Vitals: Temp Pulse Resp BP Pulse Ox 99.8 F H 113 H 19 121/66 98 11/05/19 11:24 11/05/19 11:24 11/05/19 11:24 11/05/19 11:24 11/05/19 11:24 General appearance: Present: no acute distress, well-nourished - EENT Eyes: Present: PERRL ENT: hearing intact, clear oral mucosa - Neck Neck: Present: supple, normal ROM - Respiratory Respiratory effort: normal Respiratory: bilateral: CTA - Cardiovascular Heart rate: 78 Rhythm: regular Heart Sounds: Present: S1 & S2. Absent: rub, click - Extremities Extremities: pulses symmetrical, No edema Peripheral Pulses: within normal limits - Abdominal General gastrointestinal: Present: soft, non-tender, non-distended, normal bowel sounds Male genitourinary: Present: normal - Integumentary Integumentary: Present: clear, warm, dry - Musculoskeletal Musculoskeletal: gait normal, strength equal bilaterally - Psychiatric Psychiatric: appropriate mood/affect, intact judgment & insight - Neurologic Neurologic: CNII-XII intact, moves all extremities - Allied Health Allied health notes reviewed: nursing, case management Plan Activity: no restrictions Follow up with: BONNIE HERRING MD [Primary Care Provider] - 3-5 Days STEFANY SHEETS MD [Staff Physician] - 7 Days
--- NOTE | 2019-11-05 16:49 | Progress Note ---
Assessment and Plan Day #4 Patient feeling a lot better Has a low-grade fever Coronavirus negative HIV test pending (1) Sepsis Current Visit: Yes Status: Acute Plan to address problem: Sepsis b/c of fever tachycardia ,Leukocytosis Continue IV antibiotics (2) Bilateral pneumonia Current Visit: Yes Status: Acute Qualifiers: Pneumonia type: due to unspecified organism Lung location: unspecified part of lung Qualified Code(s): J18.9 - Pneumonia, unspecified organism Plan to address problem: Treat as CAP Covid --rule out\ IV antibiotics changed to Unasyn IV (3) Person under investigation for COVID-19 Current Visit: Yes Status: Acute Plan to address problem: Covid ruled out (4) DVT prophylaxis Current Visit: Yes Status: Acute Plan to address problem: On Lovenox and GI prophyla Subjective Date of service: 11/04/19 Principal diagnosis: Bilateral pneumonia Interval history: Day #4--patient still has low-grade fever 24-year-old man who states that he went to see his primary care provider about 2 weeks ago for a routine exam and blood work. He was called later to inform him that he had elevated liver function tests. He states that over the past few days he has developed a fever and chills at night. He has had a nonproductive cough. He states that he has some substernal chest discomfort when he takes a deep breath. He has had no leg pain, no recent travel, no exposure to TB or patients known to have COVID. He does not take any routine medications. He states that he was admitted once for pneumonia as a child. Patient ruled out for coronavirus. Symptomatically better. Afebrile since last night Doing better Patient has low-grade fever Objective - Constitutional Vitals: Vital Signs - 12hr 11/05/19 11/05/19 10:10 11:24 Temperature 99.8 F H Pulse Rate 113 H Pulse Rate [ 82 Bilateral] Respiratory 19 Rate Respiratory 18 Rate [Bilateral ] Blood Pressure 121/66 O2 Sat by Pulse 98 Oximetry General appearance: Present: no acute distress, well-nourished - EENT Eyes: PERRL, EOM intact ENT: hearing intact, clear oral mucosa Ears: bilateral: normal - Neck Neck: supple, normal ROM - Respiratory Respiratory effort: normal Respiratory: bilateral: CTA - Breasts Breasts: normal - Cardiovascular Heart rate: 78 Rhythm: regular Heart Sounds: Present: S1 & S2. Absent: gallop, rub Extremities: pulses intact, No edema, normal color, Full ROM - Gastrointestinal General gastrointestinal: Present: soft, non-tender, non-distended, normal bowel sounds - Genitourinary Male genitourinary: normal - Integumentary Integumentary: clear, warm, dry - Musculoskeletal Musculoskeletal: 1, strength equal bilaterally - Neurologic Neurologic: moves all extremities - Psychiatric Psychiatric: memory intact, appropriate mood/affect, intact judgment & insight - Labs CBC & Chem 7: 11/02/19 05:22 11/02/19 05:22 HEART Score - HEART Score EKG: Normal Age: < 45 Risk factors: No known risk factors Troponin: Troponin T < 0.010 ng/mL (0.00-0.029) 11/01/19 11:55 Troponin: < normal limit - Critical Actions Critical Actions: 0-3 pts:0.9-1.7%risk of adverse cardiac event.Candidate for discharge
[2019-11-05 18:50] VITALS: BP 123/74
[2019-11-13 19:13] LABS: HIV-1 RNA QN PCR <1.30 Log cps/mL; HIV-1 RNA QN PCR <20 Copies/mL
== END 2019-11-05 19:12 | disposition home or self-care (01) | DRG 871 ==
LOC: ED 10:32 → IMCU 15:24
PROVIDERS: ADMIT Internal Medicine; ATTEND Internal Medicine
DX: A41.9 Sepsis, unspecified organism (principal); J18.9 Pneumonia, unspecified organism; J45.909 Unspecified asthma, uncomplicated; F10.10 Alcohol abuse, uncomplicated; Y90.9 Presence of alcohol in blood, level not specified; Z82.49 Family history of ischemic heart disease and other diseases of the circulatory system; Z03.818 Encounter for observation for suspected exposure to other biological agents ruled out
CPT/HCPCS: 36415; 71045; 71275; 80048; 80053; 80076; 80307; 81001; 82140; 82550; 82553; 82728; 82947; 83036; 83615; 83690; 83735; 84145; 84484; 85025; 85379; 85610; 85730; 86140; 86689; 87040; 87086; 87536; 93005; 94640; 94760; G0378; J0295; J0456; J0696; J1650; J2405; J7030; J7050; Q9967; U0003-CS